=== PATIENT | female | born 1965 | race Caucasian/White ===

== ENCOUNTER 2017-02-15 22:41 | Inpatient (IN) | payer OTHER ==
[~2017-02-15] VITALS: Ht 162.6 cm; Wt 100.4 kg
[2017-02-15 23:03] LABS: BASOPHIL 0.4 % (0-2); EOSINOPHIL 1.7 % (0-5); HCT 34.6 % (37.0-47.0); HGB 10.4 g/dl (12.5-16.0); LYMPHOCYTE 10.5 % (15-48); MCH 26.1 pg (25.0-31.0); MCHC 30.1 g/dL (32.0-36.0); MCV 86.9 fL (78.0-100.0); MONOCYTE 4.8 % (0-12); MPV 11.1 fL (6.0-9.5); NEUTROPHIL 82.6 % (41-80); PLT 327 K/uL (150-400); RBC 3.98 M/uL (4.20-5.40); RDW 19.1 % (11.5-14.0); WBC 11.1 K/uL (4.0-10.5)
[2017-02-15 23:23] LABS: CKMB 1.16 ng/mL (0.97-4.94); TROPONIN T < 0.010 ng/mL
[2017-02-15 23:24] LABS: BILIRUBIN - TOTAL 0.4 mg/dL (0.1-1.0); CREATININE 0.7 mg/dL (0.5-1.0); GLOBULIN (CALCULATION) 3.3 g/dL (2.2-4.2); POTASSIUM 3.5 mmol/L (3.5-5.1); TOTAL PROTEIN 7.3 g/dL (6.4-8.3)
[2017-02-15 23:26] LABS: PRO-BNP 1006 pg/mL (0-125)
[2017-02-15 23:54] LABS: INR 1.74 (0.9-1.2); PROTHROMBIN TIME 19.8 SECONDS (11.7-14.0); PTT 34.6 SECONDS (23.2-31.4)
[2017-02-16 00:57] LABS: BILIRUBIN NEGATIVE (NEGATIVE); BLOOD TRACE-LYSED Ery/uL (NEGATIVE); CLARITY CLEAR (CLEAR); COLOR COLORLESS (YELLOW); GLUCOSE (U) NORMAL (NORMAL); KETONE (U) NEGATIVE (NEGATIVE); LEUKOCYTES NEGATIVE Leu/uL (NEGATIVE); NITRITE NEGATIVE (NEGATIVE); PROTEIN NEGATIVE (NEGATIVE); SPECIFIC GRAVITY <=1.005 (1.001-1.030); UROBILINOGEN 0.2 mg/dL (0.2-1.0); pH 5.5 (5.0-9.0)
[2017-02-16 01:02] LABS: SQUAMOUS EPITHELIAL CELLS RARE
[2017-02-16 01:07] LABS: LACTIC ACID 2.2 mmol/L (0.5-2.2)
[2017-02-16 08:35] LABS: CREATININE 0.6 mg/dL (0.5-1.0); MAGNESIUM 1.84 mg/dL (1.40-2.10); POTASSIUM 2.7 mmol/L (3.5-5.1)
[2017-02-17 04:28] LABS: HCT 32.8 % (37.0-47.0); HGB 10.1 g/dl (12.5-16.0); MCH 26.6 pg (25.0-31.0); MCHC 30.8 g/dL (32.0-36.0); MCV 86.3 fL (78.0-100.0); MPV 10.7 fL (6.0-9.5); RBC 3.8 M/uL (4.20-5.40); WBC 8.2 K/uL (4.0-10.5)
[2017-02-17 04:33] LABS: INR 1.71 (0.9-1.2); PROTHROMBIN TIME 19.5 SECONDS (11.7-14.0)
[2017-02-17 04:52] LABS: CREATININE 0.8 mg/dL (0.5-1.0); MAGNESIUM 2.06 mg/dL (1.40-2.10); POTASSIUM 2.9 mmol/L (3.5-5.1)
[2017-02-18 04:52] LABS: BASOPHIL 0.5 % (0-2); EOSINOPHIL 1.5 % (0-5); HCT 33.2 % (37.0-47.0); HGB 10.3 g/dl (12.5-16.0); LYMPHOCYTE 16.8 % (15-48); MCH 26.5 pg (25.0-31.0); MCV 85.6 fL (78.0-100.0); MONOCYTE 7.5 % (0-12); MPV 10.8 fL (6.0-9.5); NEUTROPHIL 73.7 % (41-80); PLT 309 K/uL (150-400); RBC 3.88 M/uL (4.20-5.40); RDW 18.7 % (11.5-14.0); WBC 6.5 K/uL (4.0-10.5)
[2017-02-18 05:02] LABS: INR 1.73 (0.9-1.2); PROTHROMBIN TIME 19.7 SECONDS (11.7-14.0)
[2017-02-18 05:10] LABS: CREATININE 0.8 mg/dL (0.5-1.0); MAGNESIUM 2.37 mg/dL (1.40-2.10); POTASSIUM 2.5 mmol/L (3.5-5.1)
--- NOTE | 2017-02-18 12:26 | NUR ---
RECIEVED ORDERS TO APPLY SILVER NITRATE TO EAR - EAR CLEANSED DRIED AND SILVER NITRATE APPLIED AREA NOTED TO HAVE STOPPED BLEEDING THIS NURSE STEPPED OUT OF ROOM WHEN A FAMILY STEPPED OUT AND STATED HER EAR WAS BLEEDING AGAIN INSTRUCTED THE PT TO NOT TOUCH AFFECTED AREA - TREATED SITE AGAIN NO ACTIVE BLEEDING NOTED
[2017-02-18] MEDS ORDERED: NEURONTIN600 MG PO (13:44)
[2017-02-18] MEDS ORDERED: LEVAQUIN500 MG PO (13:44)
[2017-02-18] MEDS ORDERED: BUMETANIDE2 MG PO (13:44)
[2017-02-18] MEDS ORDERED: GLUCOPHAGE850 MG PO (13:44)
[2017-02-18] MEDS ORDERED: ALDACTONE25 MG PO (13:44)
[2017-02-18] MEDS ORDERED: PREVACID30 M1 PO (13:45)
[2017-02-18] MEDS ORDERED: CLARITIN10 MG PO (13:45)
[2017-02-18] MEDS ORDERED: MICRO-K10 MEQ PO (13:46)
[2017-02-18] MEDS ORDERED: SEROQUEL XR200 MG PO (13:46)
[2017-02-18] MEDS ORDERED: COUMADIN7.5 MG PO (13:46)
[2017-02-18] MEDS ORDERED: REQUIP1 MG PO (13:46)
[2017-02-18] MEDS ORDERED: LEVOTHROID 0.0.15 MG PO (13:46)
[2017-02-18] MEDS ORDERED: SPIRIVA 18MCG18 MCG INH (13:47)
[2017-02-18] MEDS ORDERED: FLUTICASONE PROPIONATE (13:48)
[2017-02-18] MEDS ORDERED: LASIX40 MG PO (13:48)
[2017-02-18] MEDS ORDERED: SYMBICORT 80-10.2 GM INH (13:49)
[2017-02-18] MEDS ORDERED: MELOXICAM15 MG PO (13:49)
[2017-02-18] MEDS ORDERED: COMPETE1 EACH PO (13:49)
[2017-02-18] MEDS ORDERED: VENLAFAXINE HCL75 M1 PO ×2 (13:50)
[2017-02-18] MEDS ORDERED: SAXENDA SC (13:51)
[2017-08-19] MEDS ORDERED: TOPROL XL 50 MG50 MG PO (13:45)
[2017-08-19] MEDS ORDERED: VENTOLIN HFA IN18 GM INH (13:47)
[2017-08-19] MEDS ORDERED: VICODIN 10/3251 EACH PO (13:48)
[2017-08-19] MEDS ORDERED: LAMICTAL100 MG PO (13:49)
[2017-08-19] MEDS ORDERED: ZAROXOLYN2.5 MG PO (13:50)
[2017-08-19] MEDS ORDERED: K-DUR20 MEQ PO (15:07)
[2017-08-19] MEDS ORDERED: ZESTRIL5 MG PO (15:07)
[2017-08-19] MEDS ORDERED: BREO ELLIPTA 11 EACH INH (15:07)
[2017-08-19] MEDS ORDERED: DEMADEX20 MG PO (15:08)
[2017-08-19] MEDS ORDERED: VIBRAMYCIN100 MG PO (15:09)
[2017-08-19] MEDS ORDERED: NIFEREX150 MG PO (15:09)
== END 2017-02-18 13:20 | disposition home or self-care (01) | DRG 871 ==
LOC: FER 22:41 → FTCU 02-16 03:15 → FMS 02-17 12:00
PROVIDERS: Emergency Medicine Emergency Medical Services; Internal Medicine Cardiovascular Disease; Internal Medicine Nephrology; ADMIT Internal Medicine
DX: A41.9 Sepsis, unspecified organism (principal); I50.33 Acute on chronic diastolic (congestive) heart failure; G93.1 Anoxic brain damage, not elsewhere classified; J44.0 Chronic obstructive pulmonary disease with (acute) lower respiratory infection; Z99.81 Dependence on supplemental oxygen; E11.9 Type 2 diabetes mellitus without complications; D50.9 Iron deficiency anemia, unspecified; J44.1 Chronic obstructive pulmonary disease with (acute) exacerbation; I11.0 Hypertensive heart disease with heart failure; J20.9 Acute bronchitis, unspecified; R41.82 Altered mental status, unspecified; E03.9 Hypothyroidism, unspecified; F17.210 Nicotine dependence, cigarettes, uncomplicated; Z95.2 Presence of prosthetic heart valve; G89.29 Other chronic pain; F32.9 Major depressive disorder, single episode, unspecified; F41.9 Anxiety disorder, unspecified; Z79.01 Long term (current) use of anticoagulants; Z79.899 Other long term (current) drug therapy; Z88.0 Allergy status to penicillin; Z83.3 Family history of diabetes mellitus; Z82.49 Family history of ischemic heart disease and other diseases of the circulatory system; Z82.3 Family history of stroke; L98.499 Non-pressure chronic ulcer of skin of other sites with unspecified severity; E87.6 Hypokalemia
CPT/HCPCS: 36415; 36600; 70450; 71010; 71260; 80048; 80053; 81001; 82550; 82553; 82803; 82962; 83605; 83735; 83880; 84484; 85025; 85610; 85730; 87040; 87088; 87804; 87899; 93005; 94010; 94640; 94667; 94668; 94760; 97110; 97116; 97162; 97166; 97530-GP; J1940; J1956; J2270; J2405; Q9967

== ENCOUNTER 2017-02-22 18:03 | Emergency (ER) | payer OTHER ==
[~2017-02-22 18:03] MED LIST: ALDACTONE25 MG PO; BUMETANIDE2 MG PO; CLARITIN10 MG PO; COMPETE1 EACH PO; COUMADIN7.5 MG PO; FLUTICASONE PROPIONATE; GLUCOPHAGE850 MG PO; LASIX40 MG PO; LEVAQUIN500 MG PO; LEVOTHROID 0.0.15 MG PO; MELOXICAM15 MG PO; MICRO-K10 MEQ PO; NEURONTIN600 MG PO; PREVACID30 M1 PO; REQUIP1 MG PO; SAXENDA SC; SEROQUEL XR200 MG PO; SPIRIVA 18MCG18 MCG INH; SYMBICORT 80-10.2 GM INH; VENLAFAXINE HCL75 M1 PO
[2017-02-22 20:01] LABS: BASOPHIL 0.4 % (0-2); EOSINOPHIL 2.6 % (0-5); HCT 32.1 % (37.0-47.0); HGB 9.6 g/dl (12.5-16.0); LYMPHOCYTE 16.2 % (15-48); MCH 25.7 pg (25.0-31.0); MCHC 29.9 g/dL (32.0-36.0); MCV 86.1 fL (78.0-100.0); MPV 10.5 fL (6.0-9.5); NEUTROPHIL 75.8 % (41-80); PLT 295 K/uL (150-400); RBC 3.73 M/uL (4.20-5.40); RDW 18.6 % (11.5-14.0); WBC 7.8 K/uL (4.0-10.5)
[2017-02-22 20:21] LABS: ALBUMIN 3.8 g/dL (3.5-5.0); BILIRUBIN - TOTAL 0.4 mg/dL (0.1-1.0); CREATININE 0.6 mg/dL (0.5-1.0); GLOBULIN (CALCULATION) 3.1 g/dL (2.2-4.2); POTASSIUM 5.5 mmol/L (3.5-5.1); TOTAL PROTEIN 6.9 g/dL (6.4-8.3)
[2017-02-22 20:24] LABS: CKMB 1.03 ng/mL (0.97-4.94); TROPONIN T < 0.010 ng/mL
[2017-02-22 20:25] LABS: PRO-BNP 395 pg/mL (0-125)
[2017-08-19] MEDS ORDERED: TOPROL XL 50 MG50 MG PO (13:45)
[2017-08-19] MEDS ORDERED: VENTOLIN HFA IN18 GM INH (13:47)
[2017-08-19] MEDS ORDERED: VICODIN 10/3251 EACH PO (13:48)
[2017-08-19] MEDS ORDERED: LAMICTAL100 MG PO (13:49)
[2017-08-19] MEDS ORDERED: ZAROXOLYN2.5 MG PO (13:50)
[2017-08-19] MEDS ORDERED: ZESTRIL5 MG PO (15:07)
[2017-08-19] MEDS ORDERED: K-DUR20 MEQ PO (15:07)
[2017-08-19] MEDS ORDERED: BREO ELLIPTA 11 EACH INH (15:07)
[2017-08-19] MEDS ORDERED: DEMADEX20 MG PO (15:08)
[2017-08-19] MEDS ORDERED: VIBRAMYCIN100 MG PO (15:09)
[2017-08-19] MEDS ORDERED: NIFEREX150 MG PO (15:09)
== END 2017-02-22 23:10 | disposition home or self-care (01) ==
LOC: FER 18:03
PROVIDERS: Emergency Medicine Emergency Medical Services
DX: I50.9 Heart failure, unspecified (principal); J44.9 Chronic obstructive pulmonary disease, unspecified; F17.210 Nicotine dependence, cigarettes, uncomplicated; Z88.0 Allergy status to penicillin; Z99.81 Dependence on supplemental oxygen
CPT/HCPCS: 36415; 36600; 71010; 80053; 82550; 82553; 82803; 83880; 84484; 85025; 93005; 94640; 94760; J1940; J2930